=== PATIENT | female | born 1995 | race Caucasian/White ===

== ENCOUNTER 2021-02-26 21:20 | Inpatient (IN) | payer BC ==
[~2021-02-26] VITALS: Ht 154.9 cm; Wt 71.2 kg
[2021-02-26] MEDS ORDERED: MACROBID 100 M100 MG PO (22:19)
[2021-02-26 22:33] LABS: RED BLOOD COUNT 3.89 M/UL (4.00-5.10)
[2021-02-27] MEDS ORDERED: COLACE100 MG PO (15:40)
[2021-02-27] MEDS ORDERED: IBU600 MG PO (15:40)
[2021-02-28 06:44] LABS: HEMOGLOBIN 10.7 gm/dl (12.3-15.3)
== END 2021-03-01 13:15 | disposition home or self-care (01) | DRG 807 ==
LOC: GENOP 21:20 → OB 22:36
PROVIDERS: Obstetrics & Gynecology; ADMIT Obstetrics & Gynecology
PROC: 10E0XZZ Delivery of Products of Conception, External Approach (ICD-10-PCS; principal; 2021-02-26)
DX: O42.913 Preterm premature rupture of membranes, unspecified as to length of time between rupture and onset of labor, third trimester (principal); Z37.0 Single live birth; Z3A.36 36 weeks gestation of pregnancy; O70.0 First degree perineal laceration during delivery; Z20.822 Contact with and (suspected) exposure to COVID-19
CPT/HCPCS: 36415; 51702; 81001; 82800; 85014; 85018; 85025; 90471; J0595; J2405; J2590; J3010; J7030; J7120